=== PATIENT | female | born 2000 | race Caucasian/White ===

== ENCOUNTER 2025-05-04 10:03 | Outpatient (REF) | payer MEDICAID, OTHER, SELFPAY ==
--- OUTSIDE RECORDS SUMMARY | 2025-05-04 09:30 | XMS_ITS | Encounter Summary ---
Author Organization [employer] Address [address] [place] [address] 7 [place] [address] Care Team Providers Care Thermospray Operator Name Role Phone Miya Saldana JASON Primary Care Provider [phone] [phone] Reason for Visit * Reason Comments pap Encounter Details Date Type Department Care Team (Latest Contact Info) Description 05/04/2025 9:30 AM EDT Procedure Visit [facility] [address], [place] [phone] Qing Pittman CNM [address], [place] [phone] Checking subdermal contraceptive (Primary Dx); Encntr screen for infections w sexl mode of transmiss Social History Tobacco Use Types Packs/Day Years Used Date Smoking Tobacco: Never Tobacco Cessation:Counseling Given: Not Answered Alcohol Use Standard Drinks/Week Comments Never 0 (1 standard drink = 0.6 oz pur e alcohol) Depression Answer Date Recorded Patient Health Questionnaire-9 Score 9 03/23/2025 Patient Health Questionnaire-9 Score 9 03/23/2025 Last PHQ-9: Questionnaire Data Not on file 0 03/23/2025 Housing Stability Answer Date Recorded What is your housing situation today? I do not have housing (Staying with others, in a hotel, in a long-term, living outside on the street, on a beach, in a car, or in a park 03/25/[address] you li ve. Do you have problems with any of the following? None of the above 03/25/2025 Food Insecurity Answer Date Recorded Within the past 12 months, y ou worried that your food would run out before you got money to buy more: Sometimes True 2024 Within the past 12 months,th e food you bought just didn't last and you didn't have enough money to get more: Sometimes True 03/25/2025 Transportation Answer Date Recorded In the past 12 months, has l ack of transportation kept you from medical appts, meetings, work or from getting things needed for daily living? Yes, it has kept me from medical appointments or getting medications. 03/23/2025 Utilities Answer Date Recorded In the past 12 months, has t he electric, gas, oil or water company threatened to shut off services in your home? No 03/23/2025 Depression Answer Date Recorded Patient Health Questionnaire-2 Score 2 03/23/2025 Internet Access Answer Date Recorded Internet Access Q1 Yes 03/25/2025 Internet Access Q2 Not on file 03/25/2025 Comments No Sex and Gender Information Value Date Recorded Sex Assigned at Female 03/12/2025 1:23 PM EDT Legal Sex Female 10:34 AM EST Gender Identity Female 03/12/2025 1:23 PM EDT Sexual Orientation Straight 03/12/2025 1: 23 PM EDT documented as of this encounter Last Filed Vital Signs Vital Sign Reading Time Taken Comments Blood Pressure 100/68 05/04/2025 9:39 AM EDT Pulse 67 05/04/2025 9:39 AM EDT Temperature 37.1 C (98.7 F) 05/04/2025 9:39 AM EDT Respiratory Rate 14 05/04/2025 9:39 AM EDT Oxygen Saturation 99% 05/04/2025 9:39 AM EDT Inhaled Oxygen Concentration - - Weight 74.9 kg (165 lb 3.2 oz) 05/04/2025 9:39 A M EDT Height - - Body Mass Index 29.73 04/02/2025 1:54 PM EDT documented in this encounter Progress Notes * Qing Pittman CNM - 05/04/2025 9:30 AM EDT Subjective Patient ID: Geraldine Finney is a 25 y.o. female who presents for pap Nexplanon replaced at last visit with me. Here for pap, but would like to defer today due to menses. Happy with implant, no concerns with site. No change in partner. No vaginal/urinary symptoms. Review of Systems Objective BP 100/68 (BP Location: Left arm, Patient Position: Sitting, BP Cuff Size: Adult) Pulse 67 Temp98.7 ??F (37.1 ??C) (Oral) Resp 14 Wt 165 lb 3.2 oz (74.9 kg) LMP 05/03/2025 SpO2 99% BMI29.73 kg/m?? Physical Exam Constitutional: Appearance: Normal appearance. Skin: Comments: Nexplanon palpable in left arm, site well healed Neurological: Mental Status: She is alert. Psychiatric: Mood and Affect: Mood normal. Behavior: Behavior normal. Assessment/Plan Diagnoses and all orders for this visit: Checking subdermal contraceptive Reviewed normal side effects and danger signs. Expect irregular bleeding, or less likely, no bleeding at all. Report if implant not palpable. Report prolonged, frequent or heavy bleeding. Remove/replace Nexplanon by 5y from insertion date. May remove any time prior to that if desired. Will schedule pap at desk. Let me know if bleeding persists for longer than a week. Encntr screen for infections w sexl mode of transmiss - Syphilis Screen; Future Will add on syphilis testing to PCP labs. She will go get these now. documented in this encounter Plan of Treatment Not on file documented as of this encounter Procedures Procedure Name Priority Date/Time Associated Diagnosis Comments SYPHILIS SCREEN Routine 05/04/2025 10:12 AM EDT Encntr screen for infections w sexl mode of transmiss documented in this encounter Results * Syphilis Screen (05/04/2025 10:12 AM EDT) Syphilis Screen Nonreactive Nonreactive [facility] Blood Venous blood specimen / Unknown 05/04/2025 10:12 AM EDT 05/04/2025 11:02 AM EDT us Qing Pittman CNM LAB BLOOD ORDERABLES Nanette l Result [facility] [address] [place] [phone] documented in this encounter Visit Diagnoses Diagnosis Checking subdermal contraceptive- Primary Surveillance of previously prescribed implantable subdermal contraceptive Encntr screen for infections w sexl mode of transmiss documented in this encounter Additional Health Concerns Assessment Noted Time PHQ-9 Depression Total Score: 9 03/23/20 25 10:27 AM EDT documented as of this encounter Care Teams Thermospray Operator Relationship Specialty Start Date End Date Miya Saldana CNP [address] [place] [address] PCP - General Family Medicine 04/02/25 documented as of this encounter
[2025-05-04 11:09] LABS: MANUAL DIFF FLAG NO
[2025-05-04 11:16] LABS: Hematocrit 36.4 % (37.0-47.0); Hemoglobin 12.1 g/dl (12.0-16.0); Imm Gran Abs Auto 0.01 X10*3/uL (0.00-0.03); Imm Gran Pct Auto 0.2 % (0.0-0.4); Lymphocytes Absolute Auto 1.8 X10*3/uL (1.2-4.9); Mean Corpuscular HGB Conc 33.2 g/dl (31.0-35.0); Mean Corpuscular Hemoglobin 28.2 pg (27.0-33.0); Mean Corpuscular Volume 84.8 fL (80.0-98.0); NRBC Abs Auto 0.000 X10*3/uL (0.0-0.012); NRBC Pct Auto 0.0 /100WBC (0.0-0.2); Platelet Count 197 X10*3/uL (160-400); Red Blood Count 4.29 X10*6/uL (4.20-5.50); White Blood Count 5.2 X10*3/uL (4.8-10.8)
[2025-05-04 11:30] LABS: Anion Gap 9 (12-20); Blood Urea Nitrogen 13 mg/dL (9-16); Calcium 9.1 mg/dL (8.4-10.2); Carbon Dioxide 26 mmol/L (22-29); Chloride 109 mmol/L (96-108); Cholesterol 133 mg/dL (<200); Estimated Glomerular Filt Rate > 60; HDL Cholesterol 41 mg/dL (>40); Potassium 4.1 mmol/L (3.3-5.1); Sodium 140 mmol/L (135-145); Triglycerides 65 mg/dL (<150)
[2025-05-04 11:52] LABS: HBS Num1 185.44 mIU/mL (0-7.99); HBc Num1 0.15 S/CO (0.00-0.79); HBsAGNum1 0.47 S/CO (0.00-0.99); HIV Num 1 0.04 S/CO (0.00-0.99); Hepatitis B Surface Antigen Negative (Negative); Syphilis Screen Nonreactive (Nonreactive); ~HepC Num1 0.21 S/CO (0.00-0.79); ~Hepatitis B Surface Antibody REACTIVE (Nonreactive); ~Hepatitis C Antibody Nonreactive (Nonreactive)
--- OUTSIDE RECORDS SUMMARY | 2025-05-04 12:08 | XMS_ITS | Clinical Summary ---
Author Organization [employer] Address [address] [place] [address] 7 [place] [address] Care Team Providers Care Innovations Paraprofessional Name Role Phone Miya Saldana CNP Primary Care Provider [phone] [phone] Allergies No known active allergies Medications No known medications Active Problems No known active problems Encounters Date Type Department Care Team Description 05/04/2025 9:30 AM EDT Procedure Visit [facility] MEDICINE [address] [place] [phone] Qing Pittman CNM Checking subdermal contraceptive (Primary Dx); Encntr screen for infections w sexl mode of transmiss 05/04/2025 Results Follow-Up [facility] [address] [place] [phone] Qing Pittman CNM CBC auto differential, Lipid Panel, Standard, Basic Metabolic Panel 05/04/2025 Travel 04/02/2025 2:00 PM EDT Office Visit [facility] [address] [place] [address] Miya Saldana CNP Encounter for physical examination (Primary Dx) 04/02/2025 Travel 04/01/2025 Telephone [facility] [address] [place] [address] Jose Maria Garibaldi, [place] chart prep 03/25/2025 Patient Outreach [facility] [address] [place] [phone] Messi Tejada MD Pre-visit Planning (SDOH screening positive and Tobacco screening negative) 03/23/2025 9:30 AM EDT Procedure Visit [facility] [address] [place] [address] Qing Pittman CNM Nexplanon insertion (Primary Dx); Nexplanon removal 03/23/2025 Patient Outreach [facility] [address] [place] [address] Qing Pittman CNM Care Coordination (CHW outreach for [facility] housing search-referral completed ) 03/23/2025 Travel 03/22/2025 Telephone [facility] [address] [place] [address] Vandana Quick MA chart prep 03/12/2025 2:00 PM EDT Office Visit [facility] [address] [place] [address] Anisha Rizvi ANP Left arm pain (Primary Dx); Presence of subdermal contraceptive device 03/12/2025 Travel 03/11/2025 Telephone [facility] [address] [place] [address] Messi Tejada MD Appointment Request from Last 3 Months Immunizations Immunization Administration Dates Next Due Tdap 03/12/2025 Social History Tobacco Use Types Packs/Day Years [...] with others, in a hotel, in a residential, living outside on the street, on a [...] Q2 Not on file 03/25/2025 Comments No Intention Date Recorded No desire to become (finding) 0 03/23/2025 Sex and Gender Information Value Date Recorded Sex Assigned at Female 03/12/2025 1:23 PM EDT Legal Sex Female 10:34 AM EST Gender Identity Female 03/12/2025 1:23 PM EDT Sexual Orientation Straight 03/12/2025 1: 23 PM EDT Last Filed Vital Signs Vital Sign Reading [...] oz) 05/04/2025 9:39 A M EDT Height 158.8 cm (5' 2.5 ) 04/02/2025 1:54 PM EDT Body Mass Index 29.73 04/02/2025 1:54 PM EDT Plan of Treatment Health Maintenance Due Date Last Done Comments HIV Screening 2001 HPV Vaccines (1 - 3-dose series) 2016 Hepatitis C Screening 2019 Hepatitis B Vaccines (1 of 3 - 19+ 3-dose series) 2020 Pap Smear 2022 Depression Monitoring 09/20/2025 03/23/2025 , 03/23/2025 Influenza Vaccine (#1) 2026 Postp oned from 03/08/2025 (Patient Refused) Alcohol/Substance Use Screening 03/23/2026 03/23/2025 Disability Screening 03/23/2026 03/23/2025 Family Planning (PISQ) 03/23/2026 03/23/2025 SDOH Screening 03/25/2026 03/25/2025 COVID-19 Vaccine (1 - 2023-2 5 season) 2026 Postponed from 03/08 (Patient Refused) Tobacco Screening 05/04/2026 05/04/2025 DTaP/Tdap/Td Vaccines (2 - T d or Tdap) 03/12/2035 03/12/2025 Zoster Vaccines (1 of 2) 2051 RSV Patients and Patients Aged 60 years or older (1 - 1-dose 75+ series) 2076 HIB Vaccines Aged Out No longer eligi ble based on patient's age to complete this topic Hepatitis A Vaccines Aged Out No long er eligible based on patient's age to complete this topic IPV Vaccines Aged Out No longer eligi ble based on patient's age to complete this topic Meningococcal B Vaccine Aged Out No l onger eligible based on patient's age to complete this topic Meningococcal Vaccine Aged Out No liv hi eligible based on patient's age to complete this topic Pneumococcal Vaccine: Pediatrics (0 to 5 Years) and At-Risk Patients (6 to 49) Years Aged Out No longer eligible b ased on patient's age to complete this topic RSV under 20 months Aged Out No longe r eligible based on patient's age to complete this topic Rotavirus Vaccines Aged Out No longer eligible based on patient's age to complete this topic Procedures Procedure Name Priority Date/Time Associated Diagnosis Comments SYPHILIS SCREEN Routine 05/04/2025 10:12 AM EDT Encntr screen for infections w sexl mode of transmiss BASIC METABOLIC PANEL Routine 05/04/2025 10:12 AM EDT Encounter for physical examination LIPID PANEL, STANDARD Routine 05/04/2025 10:12 AM EDT Encounter for physical examination CBC WITH AUTO DIFFERENTIAL Routine 05/04/2025 10:12 AM EDT Encounter for physical examination POCT , URINE Routine 03/23/2025 10:30 AM EDT Nexplanon insertion MS RMVL W/RINSJ NON-BIODEGRADABLE DRUG DLVR IMPLT Routine 03/23/2025 9:45 AM EDT Nexplanon insertion Nexplanon removal from Last 3 Months Results * Syphilis Screen (05/04/2025 10:12 AM EDT) Pathologist [facility] Syphilis Screen Nonreactive Nonreactive [facility] Blood Venous blood specimen / Unknown 05/04/2025 10:12 AM EDT 05/04/2025 11:02 AM EDT us Qing CRUZ LAB BLOOD ORDERABLES Nanette cotto Result [facility] [address] [place] [phone] [phone] * (ABNORMAL) CBC auto differential (05/04/2025 10:12 AM EDT) Pathologist [facility] White Blood Count 5.2 4.8 - 10.8 X10*3/uL [facility] Red Blood Count 4.29 4.20 - 5.50 X10*6/uL [facility] Hemoglobin 12.1 12.0 - 16.0 g/dl [facility] Hematocrit 36.4(L) 37.0 - 47.0 % [facility] Mean Corpuscular Volume 84.8 80.0 - 98.0 fL [facility] Mean Corpuscular Hemoglobin 28.2 27.0 - 33.0 pg [facility] Mean Corpuscular HGB Conc 33.2 31.0 - 35.0 g/dl [facility] Red Cell Distribution Width 12.7 11.0 - 16.0 % [facility] Platelet Count 197 160 - 400 X10*3/uL [facility] Mean Platelet Volume 11.2 9.4 - 12.3 fL [facility] Neutrophils Percent Auto 52.4 45 - 73 % [facility] Imm Gran Pct Auto 0.2 0.0 - 0.4 % [facility] Lymphocytes Percent Auto 33.9 20 - 40 % [facility] Monocytes Percent Auto 10.0 2 - 11 % [facility] Eosinophils Percent Auto 2.9 0 - 4 % [facility] Basophils Percent Auto 0.6 0 - 2 % [facility] NRBC Pct Auto 0.0 0.0 - 0.2 /100WBC [facility] Neutrophils Absolute Auto 2.7 2.0 - 8.3 x10*3/uL [facility] Imm Gran Abs Auto 0.01 0.00 - 0.03 X10*3/uL [facility] Lymphocytes Absolute Auto 1.8 1.2 - 4.9 X10*3/uL [facility] Monocytes Absolute Auto 0.5 0.1 - 1.2 X10*3/uL [facility] Eosinophils Absolute Auto 0.2 0.0 - 0.4 X10*3/uL [facility] Basophils Absolute Auto 0.0 0.0 - 0.2 X10*3/uL [facility] NRBC Abs Auto 0.000 0.0 - 0.012 X10*3/uL [facility] Blood Venous blood specimen / Unknown 05/04/2025 10:12 AM EDT 05/04/2025 11:02 AM EDT Miya [facility] LAB BLOOD ORDERABLES Nanette l Result [facility] [address] [place] [phone] * Lipid Panel, Standard (05/04/2025 10:12 AM EDT) Triglycerides 65 <150 mg/dL [facility] Comment:Desirable Triglyceri de: less than 150 mg/dLBorderline High Triglyceride 150-199 mg/dLHigh Triglyceride: 200-499 mg/dLVery High Triglyceride: greater than or equal to 5OO mg/dL Cholesterol 133 <200 mg/dL [facility] Comment:Desirable Cholestero l: less than 200 mg/dLBorderline High Cholesterol: 200-239 mg/dLHigh Cholesterol: greater than 239 mg/dL LDL Cholesterol Calculated 79 <100 mg/dL [facility] Comment:Desirable LDL: less than 100 mg/dLNear Optimal/Above Optimal LDL: 110- 129 mg/dLBorderline High LDL: 130-159 mg/dLHigh LDL: 160-189 mg/dLVery High LDL: greater than or equal to 190 mg/dL HDL Cholesterol 41 >40 mg/dL [facility] Comment:Desirable HDL: great er than 40 mg/dL Note: This HDL assay may give artificially low results in patients with liver disease. Blood Venous blood specimen / Unknown 05/04/2025 10:12 AM EDT 05/04/2025 11:02 AM EDT [facility] LAB BLOOD ORDERABLES Nanette l Result [facility] [address] [place], [place] [phone] * (ABNORMAL) Basic Metabolic Panel (05/04/2025 10:12 AM EDT) Sodium 140 135 - 145 mmol/L [facility] Potassium 4.1 3.3 - 5.1 mmol/L [facility] Chloride 109(H) 96 - 108 mmol/L [facility] Carbon Dioxide 26 22 - 29 mmol/L [facility] Anion Gap 9(L) 12 - 20 [facility] Urea Nitrogen (BUN) 13 9 - 16 mg/dL [facility] Creatinine, Serum 0.63 0.5 - 1.4 mg/dL [facility] Estimated Glomerular Filt Rate >60 [facility] Comment:Chronic Kidney Disea se: Estimated GFR < 60 mL/min/1.35c1Clokxd Kidney Disease: Estimated GFR < 15 mL/min/1.73m2 Glucose 94 60 - 115 mg/dL [facility] Calcium 9.1 8.4 - 10.2 mg/dL [facility] Blood Venous blood specimen / Unknown 05/04/2025 10:12 AM EDT 05/04/2025 11:02 AM EDT Miya Saldana [facility] LAB BLOOD ORDERABLES Nanette l Result [facility] [address] [place] [phone] * POCT , urine manually resulted (03/23/2025 10:30 AM EDT) Preg Test, Ur Negative Negative, Indeterminate, None Detected, Invalid, Specimen unsatisfactory for evaluation, Weakly Positive, 2+ QC Media Lot # [id number] Lot# Expiration Date [id number] Urine 03/23/2025 10:3 0 AM EDT Qing Pittman CNM POINT OF CARE TEST ENTER/ EDIT ORDERABLES Final Result * MS RMVL W/RINSJ NON-BIODEGRADABLE DRUG DLVR IMPLT (03/23/2025 9:45 AM EDT) Narrative Qing Pittman CNM - 03/23/2025 9:45 AM EDT Qing Pittman CNM 03/23/2025 10:44 AM Insertion/Removal of Contraceptive Capsule Date/Time: 03/23/2025 9:45 AM Performed by: Qing Pittman CNM Authorized by: Qing Pittman CNM Confirmed correct patient, procedure, site, and patient consented: Yes Participating Staff: Qing Pittman CNM Consent: Consent obtained: Verbal and written Consent given by: Patient Procedural risks and benefits discussed: Yes Patient questions answered: yes Patient agrees, verbalizes understanding, and wants to proceed: yes Educational handouts given: yes Instructions and paperwork completed: yes [place] Protocol: Patient states understanding of procedure being performed: yes Site marked: yes Indication: Indication: presence of non-biodegradable drug delivery implant Pre-procedure: Pre-procedure timeout performed: yes Prepped with: povidone-iodine Local anesthetic: 2ml 2% lidocaine. The site was cleaned and prepped in a sterile fashion: yes Procedure: Procedure: Removal with reinsertion Small stab incision was made in arm: yes Left/right: Left Preloaded contraceptive capsule trocar was placed subdermally: yes Visualization of implant was obtained: yes Contraceptive capsule was inserted and trocar removed: yes Visualization of notch in stylet and palpation of device: yes Palpation confirms placement by provider and patient: yes Site was closed with steri-strips and pressure bandage applied: yes OSM: 1 each etonogestrel-eluting 68 mg Comments: Old implant removed intact after dissection of adhesions. New implant placed without incident. Qing Pittman CNM IN CLINIC/BEDSIDE ORDERAB LES Final Result from Last 3 Months Insurance [facility] Care Teams Innovations Paraprofessional Relationship Specialty Start Date End Date Miya Saldana CNP [address] [place] [phone] PCP - General Family Medicine 04/02/25
--- OUTSIDE RECORDS SUMMARY | 2025-05-04 12:08 | XMS_ITS | Encounter Summary ---
Author Organization [employer] Address [address] [facility] 7 [place] [address] Care Team Providers Care Skid Worker Name Role Phone Miya Saldana CNP Primary Care Provider [phone] [phone] Encounter Details Date Type Department Care Team (Latest Contact Info) Description 05/04/2025 Travel Social History Tobacco Use Types Packs/Day Years Used Date Smoking Tobacco: Never Alcohol Use Standard Drinks/Week Comments Never 0 [...] with others, in a hotel, in a custodial, living outside on the street, on a [...] PM EDT documented as of this encounter Plan of Treatment Not on file documented as of this encounter Visit Diagnoses Not on filedocumented in this encounter Additional Health Concerns Assessment Noted Time PHQ-9 Depression Total Score: 9 03/23/20 25 10:27 AM EDT documented as of this encounter Care Teams Skid Worker Relationship Specialty Start Date End Date Miya Saldana CNP [address] [place] [address] PCP - General Family Medicine 04/02/25 documented as of this encounter
--- OUTSIDE RECORDS SUMMARY | 2025-05-04 12:08 | XMS_ITS | Encounter Summary ---
Author Organization [employer] Address [address] [facility] [address] [place] [address] Care Team Providers Care Miniature Train Driver Name Role Phone Miya Saldana JASON Primary Care Provider [phone] [phone] Encounter Details Date Type Department Care Team (Late st Contact Info) Description 05/04/2025 Results Follow-Up [facility] [address] [place], [place] [phone] Qing Pittman CNM [address] [place] [address] CBC auto differential, Lipid Panel, Standard, Basic Metabolic Panel Social History Tobacco Use Types Packs/Day Years [...] with others, in a hotel, in a senior living, living outside on the street, on a [...] PM EDT documented as of this encounter Miscellaneous Notes * Result Encounter Note - Qing Pittman CNM - 05/04/2025 11:35 AM EDT FYI! documented in this encounter Plan of Treatment Not on file documented as of this encounter Visit Diagnoses Not on filedocumented in this encounter Additional Health Concerns Assessment Noted Time PHQ-9 Depression Total Score: 9 03/23/20 10:27 AM EDT documented as of this encounter Care Teams Miniature Train Driver Relationship Specialty Start Date End Date Miya Saldana CNP [address] [place] [address] PCP - General Family Medicine 04/02/25 documented as of this encounter
== END 2025-05-04 10:04 | disposition home or self-care (01) ==
LOC: HO.HHCL 10:03
PROVIDERS: Visit Provider Advanced Practice Midwife
DX: Z00.00 Encounter for general adult medical examination without abnormal findings (principal); Z11.59 Encounter for screening for other viral diseases; Z11.4 Encounter for screening for human immunodeficiency virus [HIV]
CPT/HCPCS: 36415; 80048; 80061; 85025; 86704; 86706; 86780; 86803; 87340; 87389

== ENCOUNTER 2025-05-26 16:20 | Outpatient (REF) | payer MEDICAID, OTHER, SELFPAY ==
--- OUTSIDE RECORDS SUMMARY | 2025-05-26 15:45 | XMS_ITS | Encounter Summary ---
Author Organization [employer] Address [address] [facility] 7t [place] [address] Care Team Providers Care Interior Design Teacher Name Role Phone SaldanaMiya JASON Primary Care Provider [phone] Reason for Visit * Reason Comments pap Encounter Details Date Type Department Care Team (Latest Contact Info) Description 05/26/2025 3:45 PM EST Procedure Visit [facility] MED[facility] [address] [place], [place] [phone] Qing Pittman CNM [address] [place], [place] [phone] Cervical cancer screening (Primary Dx); Encntr screen for infections w sexl mode of transmiss; Vaginal discharge Social History Tobacco Use Types Packs/Day Years [...] with others, in a hotel, in a long term, living outside on the street, on a [...] Date Recorded No desire to become (finding) 1 07/26/2024 Sex and Gender Information Value Date Recorded Sex Assigned at Female 03/12/2025 1:23 PM EDT Legal Sex Female 10:34 AM EST Gender Identity Female 03/12/2025 1:23 PM EDT Sexual Orientation Straight 03/12/2025 1: 23 PM EDT documented as of this encounter Last Filed Vital Signs Vital Sign Reading Time Taken Comments Blood Pressure 110/60 05/26/2025 4:08 PM EST Pulse 79 05/26/2025 4:08 PM EST Temperature 37.1 C (98.7 F) 05/26/2025 4:08 PM EST Respiratory Rate 14 05/26/2025 4:08 PM EST Oxygen Saturation 98% 05/26/2025 4:08 PM EST Inhaled Oxygen Concentration - - Weight 77.6 kg (171 lb) 05/26/2025 4:08 PM EST Height - - Body Mass Index 30.78 04/02/2025 1:54 PM EDT documented in this encounter Progress Notes * Qing Pittman CNM - 05/26/2025 3:45 PM EST Subjective Patient ID: Geraldine Finney is a 25 y.o. female who presents for pap Hep B immune, HIV/Hep C/syphilis negative 04/2025. Here for pap. Notes some discharge and vaginal irritation x 4 months. No new partners, no new products. Agrees to pap based STI testing today. Nexplanon inserted 03/2025. Happy with method. Review of Systems Genitourinary: Positive for vaginal discharge. Negative for dyspareunia, dysuria, menstrual problem, pelvic pain, vaginal bleeding and vaginal pain. Objective BP 110/60 (BP Location: Left arm, Patient Position: Sitting, BP Cuff Size: Adult) Pulse 79 Temp98.7 ??F (37.1 ??C) (Oral) Resp 14 Wt 171 lb (77.6 kg) LMP 05/18/2025 SpO2 98% BMI 30.78 kg/m?? Physical Exam Photograph Enlarger present: declines quality assurance lab technician. Constitutional: Appearance: Normal appearance. Genitourinary: General: Normal vulva. Labia: Right: No rash, tenderness, lesion or injury. Left: No rash, tenderness, lesion or injury. Vagina: Normal. No signs of injury and foreign body. No vaginal discharge, erythema, tenderness, bleeding or lesions. Cervix: No cervical motion tenderness, discharge, friability, lesion, erythema, cervical bleeding or eversion. Uterus: Normal. Not enlarged and not tender. Adnexa: Right adnexa normal and left adnexa normal. Right: No mass, tenderness or fullness. Left: No mass, tenderness or fullness. Neurological: Mental Status: She is alert. Psychiatric: Mood and Affect: Mood normal. Behavior: Behavior normal. Assessment/Plan Diagnoses and all orders for this visit: Cervical cancer screening - Pap Smear Pap today. Repeat 3 years if normal. Will contact with results. Encntr screen for infections w sexl mode of transmiss - STI testing add on (NG, CT, Trich) Pap based STI testing today. Vaginal discharge Normal wet mount today. Will treat yeast/bacterial vaginosis on pap if noted. documented in this encounter Plan of Treatment Upcoming Encounters Date Type Department Care Team (Late st Contact Info) Description 06/23/2025 10:15 AM EST Procedure Visit [facility] MEDICINE [address] [place] [address] Qing Pittman CNM [address] [place] [address] Scheduled Orders Name Type Priority Associated Diagnoses Orde r Schedule Pap Smear Pathology and Cytology Routine Cervical cancer screening Ordered: 05/26/2025 STI testing add on (NG, CT, Trich) Pathology and Cytology Routine Encntr screen for infections w sexl mode of transmiss Ordered: 05/26/2025 documented as of this encounter Procedures Procedure Name Priority Date/Time Associated Diagnosis Comments POCT WET MOUNT/ROSANNE Routine 05/26/2025 4: 24 PM EST Vaginal discharge documented in this encounter Results * POCT fern test, vaginal fluid manually resulted (05/26/2025 4:24 PM EST) ROSANNE Prep Negative Comment:pH 4.5, neg whiff, n eg clue, neg trich, neg yeast, neg wbc Vaginal Fluid Vaginal structure / Unknown 05/26/2025 4:24 PM EST Qing CRUZ POINT OF CARE TEST ENTER/ EDIT ORDERABLES Final Result documented in this encounter Visit Diagnoses Diagnosis Cervical cancer screening- Primary Screening for malignant neoplasm of the cervix Encntr screen for infections w sexl mode of transmiss Vaginal discharge Leukorrhea, not specified as infective documented in this encounter Additional Health Concerns Assessment Noted Time PHQ-9 Depression Total Score: 9 03/23/20 25 10:27 AM EDT documented as of this encounter Care Teams Interior Design Teacher Relationship Specialty Start Date End Date Miya Saldana CNP [address] [place] [phone] PCP - General Family Medicine 04/02/25 documented as of this encounter
--- OUTSIDE RECORDS SUMMARY | 2025-05-31 14:18 | XMS_ITS | Encounter Summary ---
Author Organization [employer] Address [address] [facility] 7[address] [place] [address] Care Team Providers Care Consumer Sales Representative Name Role Phone Miya Saldana JASON Primary Care Provider [phone] Encounter Details Date Type Department Care Team (Latest Contact Info) Description 05/26/2025 Travel Social History Tobacco Use Types Packs/Day [...] with others, in a hotel, in [place] [facility], living outside on the street, on a [...] as of this encounter Plan of Treatment Upcoming Encounters Date Type Department Care Team (Late st Contact Info) Description 06/23/2025 10:15 AM EST Procedure Visit [facility] MEDICINE [address] [place], [place] [phone] Qing Pittman CNM [address] [place] [address] documented as of this encounter Visit Diagnoses Not on filedocumented in this encounter Additional Health Concerns Assessment Noted Time PHQ-9 Depression Total Score: 9 03/23/20 10:27 AM EDT documented as of this encounter Care Teams Consumer Sales Representative Relationship Specialty Start Date End Date Miya Saldana CNP [address] [place] [address] PCP - General Family Medicine 04/02/25 documented as of this encounter
--- OUTSIDE RECORDS SUMMARY | 2025-05-31 14:18 | XMS_ITS | Clinical Summary ---
Author Organization [employer] [facility] Address [address] [place] [address] 7 [place] [address] Care Team Providers Care Doping Supervisor Name Role Phone Miya Saldana CNP Primary Care Provider [phone] Allergies No known active allergies Medications No known medications Active Problems No known active problems Encounters Date Type Department Care Team Description 05/26/2025 3:45 PM EST Procedure Visit [address] [phone] Qing Pittman CNM Cervical cancer screening (Primary Dx); Encntr screen for infections w sexl mode of transmiss; Vaginal discharge 05/26/2025 Travel 05/25/[address] [address] Qing Pittman CNM chart prep 05/04/2025 9:30 AM EDT Procedure Visit [address] [address] Qing Pittman CNM Checking subdermal contraceptive (Primary Dx); Encntr screen for infections w sexl mode of transmiss 05/04/2025 Results Follow-Up [address] [address] Qing Pittman CNM CBC auto differential, Lipid Panel, Standard, Basic Metabolic Panel, Additional followed-up results: 5 05/04/2025 Travel 04/02/2025 2:00 PM EDT Office Visit [facility] [address] [place] [address] Miya Saldana CNP Encounter for physical examination (Primary Dx) 04/02/2025 Travel 04/01/2025 Telephone [facility] [address] [place] [address] Monserrat Moise MA chart prep 03/25/2025 Patient Outreach [facility] MEDICINE [address] [place] [phone] Messi Tejada MD Pre-visit Planning (SDOH screening positive and Tobacco screening negative) 03/23/2025 9:30 AM EDT Procedure Visit [facility] MED[facility]INE [address] [place] [phone] Qing Pittman CNM Nexplanon insertion (Primary Dx); Nexplanon removal 03/23/2025 Patient Outreach [address] [address] Qing Pittman CNM Care Coordination (CHW outreach for SDOH housing search-referral completed ) 03/23/2025 Travel 03/22/[address] [address] Vandana Quick MA chart prep 03/12/2025 2:00 PM EDT Office Visit [facility] [address] [place] [phone] Anisha Rizvi ANP Left arm pain (Primary Dx); Presence of subdermal contraceptive device 03/12/2025 Travel 03/11/[address] [address] Messi Tejada MD Appointment Request from Last [...] with others, in a hotel, in a longterm, living outside on the street, on a [...] (171 lb) 05/26/2025 4:08 PM EST Height 158.8 cm (5' 2.5 ) 04/02/2025 1:54 PM ED T Body Mass Index 30.78 04/02/2025 1:54 PM EDT Plan of Treatment Upcoming Encounters Date Type Department Care Team (Late st Contact Info) Description 06/23/2025 10:15 AM EST Procedure Visit [facility] MED[facility]INE [address] [place], [place] [phone] Qing Pittman, CNM [address] [place], [place] [phone] Health Maintenance Due Date Last Done Comments HPV Vaccines (1 - 3-dose series) 2016 Hepatitis B Vaccines (1 of 3 - 19+ 3-dose series) 2020 Pap Smear 2022 Depression Monitoring 09/20/2025 03/23/2025 , 03/23/2025 Influenza Vaccine (#1) 2026 Postp oned from 03/08/2025 (Patient Refused) Alcohol/Substance Use Screening 03/23/2026 03/23/2025 Disability Screening 03/23/2026 03/23/2025 SDOH Screening 03/25/2026 03/25/2025 COVID-19 Vaccine (1 - 2024-2 6 season) 2026 Postponed from 03/08 (Patient Refused) Family Planning (PISQ) 05/26/2026 05/26/2025 Tobacco Screening 05/26/2026 05/26/2025 DTaP/Tdap/Td Vaccines (2 - T d or Tdap) 03/12/2035 03/12/2025 Zoster Vaccines (1 of 2) 2051 RSV Patients and Patients Aged 60 years or older (1 - 1-dose 75+ series) 2076 HIV Screening Completed 05/04/2025 Hepatitis C Screening Completed 05/04/2025 HIB Vaccines Aged Out No longer eligi [...] Diagnosis Comments POCT WET MOUNT/ROSANNE Routine 05/26/2025 4 :24 PM EST Vaginal discharge SYPHILIS SCREEN Routine 05/04/2025 10:12 AM EDT Encntr screen for infections w sexl mode of transmiss BASIC METABOLIC PANEL Routine 05/04/2025 10:12 AM EDT Encounter for physical examination LIPID PANEL, STANDARD Routine 05/04/2025 10:12 AM EDT Encounter for physical examination CBC WITH AUTO DIFFERENTIAL Routine 05/04/2025 10:12 AM EDT Encounter for physical examination HEPATITIS B SURFACE ANTIGEN, EIA Routine 05/04/2025 10:12 AM EDT Encounter for physical examination HEPATITIS B CORE AB TOTAL Routine 05/04/2025 10:12 AM EDT Encounter for physical examination HEPATITIS B SURFACE ANTIBODY, QUALITATIVE Routine 05/04/2025 10:12 AM EDT Encounter for physical examination HEPATITIS C AB W/REFL TO HCV RNA, QN, PCR Routine 05/04/2025 10:12 AM EDT Encounter for physical examination HIV 1/2 ANTIGEN/ANTIBODY, FOURTH GENERATION W/RFL Routine 05/04/2025 10:12 AM EDT Encounter for physical examination POCT , URINE Routine 03/23/2025 10:30 AM EDT Nexplanon insertion MS RMVL W/RINSJ NON-BIODEGRADABLE DRUG DLVR IMPLT Routine 03/23/2025 9:45 AM EDT Nexplanon insertion Nexplanon removal from Last 3 Months Results * POCT fern test, vaginal fluid manually resulted (05/26/2025 4:24 PM EST) Pathologist [facility] ROSANNE Prep Negative Comment:pH 4.5, neg whiff, n eg clue, neg trich, neg yeast, neg wbc Vaginal Fluid Vaginal structure / Unknown 05/26/2025 4:24 PM EST Qing CRUZ POINT OF CARE TEST ENTER/ EDIT ORDERABLES Final Result * Syphilis Screen (05/04/2025 10:12 AM EDT) Pathologist [facility] Syphilis Screen Nonreactive Nonreactive [facility] Blood Venous blood specimen / Unknown 05/04/2025 10:12 AM EDT 05/04/2025 11:02 AM EDT Qing Pittman [facility] BLOOD ORDERABLES Nanette l Result [facility] [address] [place] [phone] * (ABNORMAL) CBC auto differential (05/04/2025 10:12 AM EDT) [facility] White Blood Count 5.2 4.8 - 10.8 X10*3/uL [facility] Red Blood Count 4.29 4.20 - 5.50 X10*6/uL [facility] Hemoglobin 12.1 12.0 - 16.0 g/dl [facility] Hematocrit 36.4(L) 37.0 - 47.0 % [facility] Mean Corpuscular Volume 84.8 80.0 - 98.0 fL [facility] Mean Corpuscular Hemoglobin 28.2 27.0 - 33.0 pg [facility] Mean Corpuscular HGB Conc 33.2 31.0 - 35.0 g/dl [facility] Red Cell Distribution Width 12.7 11.0 - 16.0 % [facility] Platelet Count 197 160 - 400 X10*3/uL [facility] Mean Platelet Volume 11.2 9.4 - 12.3 fL [facility] Neutrophils Percent Auto 52.4 45 - 73 % [facility] Imm Gran Pct Auto 0.2 0.0 - 0.4 % [facility] Lymphocytes Percent Auto 33.9 20 - 40 % [facility] Monocytes Percent Auto 10.0 2 - 11 % [facility] Eosinophils Percent Auto 2.9 0 - 4 % [facility] Basophils Percent Auto 0.6 0 - 2 % [facility] NRBC Pct Auto 0.0 0.0 - 0.2 /100WBC [facility] Neutrophils Absolute Auto 2.7 2.0 - 8.3 x10*3/uL [facility] Imm Gran Abs Auto 0.01 0.00 - 0.03 X10*3/uL [facility] Lymphocytes Absolute Auto 1.8 1.2 - 4.9 X10*3/uL [facility] Monocytes Absolute Auto 0.5 0.1 - 1.2 X10*3/uL [facility] Eosinophils Absolute Auto 0.2 0.0 - 0.4 X10*3/uL [facility] Basophils Absolute Auto 0.0 0.0 - 0.2 X10*3/uL [facility] NRBC Abs Auto 0.000 0.0 - 0.012 X10*3/uL [facility] Blood Venous blood specimen / Unknown 05/04/2025 10:12 AM EDT 05/04/2025 11:02 AM EDT [facility] LAB BLOOD ORDERABLES Nanette l Result [facility] [address] [place] [phone] [phone] * Hepatitis C Antibody with Reflex to HCV, RNA, Quantitative, Real-Time PCR (05/04/2025 10:12 AM EDT) Hepatitis C Antibody Nonreactive Nonreactive [facility] Comment:Antibodies to HCV no t detected; does not exclude early acuteHCV infection. Blood Venous blood specimen / Unknown 05/04/2025 10:12 AM EDT 05/04/2025 11:02 AM EDT [facility] LAB BLOOD ORDERABLES Nanette l Result Performing Organization Address City/[facility]/ZIP Co de Phone Number [facility] [address] [place] [phone] * Hepatitis B surface antigen, EIA (05/04/2025 10:12 AM EDT) Hepatitis B Surface Ag Negative Negative [facility] Blood Venous blood specimen / Unknown 05/04/2025 10:12 AM EDT 05/04/2025 11:02 AM EDT [facility] LAB BLOOD ORDERABLES Nanette l Result Performing Organization Address [facility] Co de Phone Number [facility] [address] [place] [phone] * Hepatitis B Core Antibody, Total (05/04/2025 10:12 AM EDT) Hepatitis B Core Antibody Nonreactive Nonreactive [facility] Blood Venous blood specimen / Unknown 05/04/2025 10:12 AM EDT 05/04/2025 11:02 AM EDT [facility] LAB BLOOD ORDERABLES Nanette l Result Performing Organization Address [facility] Co de Phone Number [facility] [address] [place] [phone] * HIV-1/2 Antigen and Antibodies, Fourth Generation, with Reflexes (05/04/2025 10:12 AM EDT) HIV AB/AG Nonreactive Nonreactive [facility] Comment:HIV-1 p24 Ag and/or HIV-1/HIV-2 Ab not detected.A test result that is nonreactive does not exclude thepossibility of exposure to or infection with HIV-1 and/orHIV-2. Nonreactive results in this assay for individualswith prior exposure to HIV-1 and/or HIV-2 may be due toantigen and antibody levels that are below the limit ofdetection of this assay.The [employer] HIV Ag/Ab Combo assay result andsupplemental assay results should be interpreted inconjunction with the patient's clinical presentation,history and other laboratory results. If the results areinconsistent with clinical evidence, additional testing issuggested to confirm the result. Blood Venous blood specimen / Unknown 05/04/2025 10:12 AM EDT 05/04/2025 11:02 AM EDT [facility] BLOOD ORDERABLES Nanette l Result Performing Organization Address [facility] Co de Phone Number [facility] [address] [place] [phone] * Hepatitis B Surface Antibody, Qualitative (05/04/2025 10:12 AM EDT) Pathologist [facility] ~Hepatitis B Surface Antibody REACTIVE Nonreactive [facility] Comment:REACTIVE: > 11.99 mI U/mL Blood Venous blood specimen / Unknown 05/04/2025 10:12 AM EDT 05/04/2025 11:02 AM EDT [facility] LAB BLOOD ORDERABLES Nanette l Result Performing Organization Address [facility]/ZIP Co de Phone Number [facility] [address] [place] [phone] * Lipid Panel, Standard (05/04/2025 10:12 AM EDT) Triglycerides 65 <150 mg/dL [facility] Comment:Desirable Triglyceri de: less than 150 mg/dLBorderline High Triglyceride 150-199 mg/dLHigh Triglyceride: 200-499 mg/dLVery High Triglyceride: greater than or equal to 5OO mg/dL Cholesterol 133 <200 mg/dL [facility] Comment:Desirable Cholestero l: less than 200 mg/dLBorderline High Cholesterol: 200-239 mg/dLHigh Cholesterol: greater than 239 mg/dL LDL Cholesterol Calculated 79 <100 mg/dL [facility] Comment:Desirable LDL: less than 100 mg/dLNear Optimal/Above Optimal LDL: 110- 129 mg/dLBorderline High LDL: 130-159 mg/dLHigh LDL: 160-189 mg/dLVery High LDL: greater than or equal to 190 mg/dL HDL Cholesterol 41 >40 mg/dL [facility] Comment:Desirable HDL: great er than 40 mg/dL Note: This HDL assay may give artificially low results in patients with liver disease. Blood Venous blood specimen / Unknown 05/04/2025 10:12 AM EDT 05/04/2025 11:02 AM EDT [facility] BLOOD ORDERABLES Nanette l Result [facility] [address] [place] [phone] * (ABNORMAL) Basic Metabolic Panel (05/04/2025 10:12 AM EDT) Sodium 140 135 - 145 mmol/L [facility] Potassium 4.1 3.3 - 5.1 mmol/L [facility] Chloride 109(H) 96 - 108 mmol/L [facility] Carbon Dioxide 26 22 - 29 mmol/L [facility] Anion Gap 9(L) 12 - 20 [facility] Urea Nitrogen (BUN) 13 9 - 16 mg/dL [facility] Creatinine, Serum 0.63 0.5 - 1.4 mg/dL [facility] Estimated Glomerular Filt Rate >60 [facility] Comment:Chronic Kidney Disea se: Estimated GFR < 60 mL/min/1.11d2Hlvywi Kidney Disease: Estimated GFR < 15 mL/min/1.73m2 Glucose 94 60 - 115 mg/dL [facility] Calcium 9.1 8.4 - 10.2 mg/dL [facility] Blood Venous blood specimen / Unknown 05/04/2025 10:12 AM EDT 05/04/2025 11:02 AM EDT Result [facility] Miya Saldana [facility] BLOOD ORDERABLES Nanette l Result [facility] [address] [place] [phone] * POCT , urine manually resulted (03/23/2025 10:30 AM EDT) Preg Test, Ur Negative Negative, Indeterminate, None Detected, Invalid, Specimen unsatisfactory for evaluation, Weakly Positive, 2+ QC Media Lot # [id number] Lot# Expiration Date [id number] Urine 03/23/2025 10:3 0 AM EDT Qing Pittman CNM POINT OF CARE TEST ENTER/ EDIT ORDERABLES Final Result * MS RMVL W/RINSJ NON-BIODEGRADABLE DRUG DLVR IMPLT (03/23/2025 9:45 AM EDT) Qing Sharp CNM - 03/23/2025 9:45 AM EDT Qing Pittamn CNM 03/23/2025 10:44 AM Insertion/Removal of Contraceptive [...] given: yes Instructions and paperwork completed: yes Wayan Protocol: Patient states understanding of procedure being [...] Final Result from Last 3 Months [facility] Care Teams Doping Supervisor Relationship Specialty Start Date End Date Miya Saldana CNP [address] [place] [address] PCP - General Family Medicine 04/02/25
== END 2025-05-26 16:21 | disposition home or self-care (01) ==
LOC: HO.LNP 16:20
PROVIDERS: Visit Provider Advanced Practice Midwife
DX: Z12.4 Encounter for screening for malignant neoplasm of cervix (principal); Z20.2 Contact with and (suspected) exposure to infections with a predominantly sexual mode of transmission
CPT/HCPCS: 87626; 88175

== ENCOUNTER 2025-06-23 14:27 | Outpatient (REF) | payer MEDICAID, OTHER, SELFPAY ==
--- OUTSIDE RECORDS SUMMARY | 2025-06-23 10:15 | XMS_ITS | Encounter Summary ---
Author Organization [facility] [facility] Address [address] [place] [address] Care Team Providers Care Glue Jointer Feeder Name Role Phone SaldanaMiya JASON Primary Care Provider [phone] Reason for Visit * Reason Comments pap Encounter Details Date Type Department Care Team (Latest Contact Info) Description 06/23/2025 10:15 AM EST Procedure Visit [facility] [address], [place] [phone] Qing Pittman CNM [address], [place] [phone] Encntr screen for infections w sexl mode of transmiss (Primary Dx); Vaginal discharge Social History Tobacco Use Types [...] with others, in a hotel, in a fci, living outside on the street, on a [...] Recorded No desire to become (finding) 1 08/24/2024 Sex and Gender Information Value Date Recorded Sex Assigned at Female 03/12/2025 1:23 PM EDT Legal Sex Female 10:34 AM EST Gender Identity Female 03/12/2025 1:23 PM EDT Sexual Orientation Straight 03/12/2025 1: 23 PM EDT documented as of this encounter Last Filed Vital Signs Vital Sign Reading Time Taken Comments Blood Pressure 122/70 06/23/2025 10:18 AM EST Pulse 75 06/23/2025 10:18 AM EST Temperature 37.1 C (98.7 F) 06/23/2025 10:18 AM EST Respiratory Rate 16 06/23/2025 10:18 AM EST Oxygen Saturation 98% 06/23/2025 10:18 AM EST Inhaled Oxygen Concentration - - Weight 76.4 kg (168 lb 6.4 oz) 06/23/2025 10:18 AM EST Height - - Body Mass Index 30.31 04/02/2025 1:54 PM EDT documented in this encounter Progress Notes * Qing Pittman CNM - 06/23/2025 10:15 AM EST Subjective Patient ID: Geraldine Finney is a 25 y.o. female who presents for followup LSIL, HPV neg pap 05/2025. STI testing not run with pap, needs to be collected (already ordered). Nexplanon inserted 03/2025. Notes some discharge which she was having at last visit as well, no other vaginal/urinary symptoms. Prefers provider collected samples. Review of Systems Genitourinary: Positive for vaginal discharge. Negative for dyspareunia, dysuria, menstrual problem, pelvic pain, vaginal bleeding and vaginal pain. Objective BP 122/70 (BP Location: Left arm, Patient Position: Sitting, BP Cuff Size: Adult) Pulse 75 Temp98.7 ??F (37.1 ??C) (Oral) Resp 16 Wt 168 lb 6.4 oz (76.4 kg) LMP 05/18/2025 SpO2 98% BMI30.31 kg/m?? Physical Exam Constitutional: Appearance: Normal appearance. Genitourinary: General: Normal vulva. Labia: Right: No rash, tenderness, lesion or injury. Left: No rash, tenderness, lesion or injury. Comments: Blind swab collection Neurological: Mental Status: She is alert. Psychiatric: Mood and Affect: Mood normal. Behavior: Behavior normal. Assessment/Plan Diagnoses and all orders for this visit: Encntr screen for infections w sexl mode of transmiss Gonorrhea/Chlamydia/trichomonas sent. Will contact with results. Vaginal discharge Bacterial vaginosis swab sent. Will contact with results. Happy with implant. May remove any time up to 5 y from insertion date. documented in this encounter Plan of Treatment Not on file documented as of this encounter Visit Diagnoses Diagnosis Encntr screen for infections w sexl mode of transmiss- Primary Vaginal discharge Leukorrhea, not specified as infective documented in this encounter Additional Health Concerns Assessment Noted Time PHQ-9 Depression Total Score: 9 03/23/20 25 10:27 AM EDT documented as of this encounter Care Teams Glue Jointer Feeder Relationship Specialty Start Date End Date Miya Saldana CNP [address] [place] [id number] PCP - General Family Medicine 04/02/25 documented as of this encounter
[2025-06-23 15:48] LABS: Bacterial Vaginosis PCR NEGATIVE (Negative); Candida Group PCR NOT DETECTED (Not Detect); Candida glab krusei PCR NOT DETECTED (Not Detect); Trichomonas vaginalis PCR NOT DETECTED (Not Detect)
[2025-06-23 16:17] LABS: CT PCR NOT DETECTED (Not Detect.); NG PCR NOT DETECTED (Not Detect.)
--- OUTSIDE RECORDS SUMMARY | 2025-06-23 19:21 | XMS_ITS | Encounter Summary ---
Author Organization [employer] Address [address] [facility] [address] [place] [address] Care Team Providers Care Bi Solutions Architect Name Role Phone Miya Saldana JASON Primary Care Provider [phone] Encounter Details Date Type Department Care Team (Late st Contact Info) Description 06/15/2025 Orders Only [facility] [address], [place] [phone] Qing Pittman CNM [address], [place] [phone] Screening examination for venereal disease (Primary Dx) Social History Tobacco Use Types Packs/Day Years [...] others, in a hotel, in a senior care, living outside on the street, on a [...] as of this encounter Plan of Treatment Scheduled Orders Name Type Priority Associated Diagnoses Orde r Schedule Bacterial Vaginosis, Yeast and Trich Microbiology Routine Screening examination for venereal disease Expected: 06/15/2025 (Approximate), Expires: 06/15/2026 Chlamydia/N. Gonorrhoeae RNA, TMA, Vagina Microbiology Routine Screening examination for venereal disease Expected: 06/15/2025 (Approximate), Expires: 06/15/2026 documented as of this encounter Visit Diagnoses Diagnosis Screening examination for venereal disease- Primary documented in this encounter Additional Health Concerns Assessment Noted Time PHQ-9 Depression Total Score: 9 03/23/20 25 10:27 AM EDT documented as of this encounter Care Teams Bi Solutions Architect Relationship Specialty Start Date End Date Miya Saldana CNP [address] [place] [phone] PCP - General Family Medicine 04/02/25 documented as of this encounter
--- OUTSIDE RECORDS SUMMARY | 2025-06-23 19:21 | XMS_ITS | Encounter Summary ---
Author Organization [employer] Address [address] [facility] [address] [place] [address] Care Team Providers Care Damage Assessor Name Role Phone Miya Saldana JASON Primary Care Provider [phone] Encounter Details Date Type Department Care Team (Latest Contact Info) Description 06/23/2025 Travel Social History Tobacco Use Types Packs/Day [...] documented as of this encounter Care Teams Damage Assessor Relationship Specialty Start Date End Date Miya Saldana CNP [address] [place] [address] PCP - General Family Medicine 04/02/25 documented as of this encounter
--- OUTSIDE RECORDS SUMMARY | 2025-06-23 19:21 | XMS_ITS | Encounter Summary ---
Author Organization [employer] Address [address] [facility] [address] [place] [address] Care Team Providers Care Cloth Spreader Name Role Phone Miya Saldana JASON Primary Care Provider [phone] Encounter Details Date Type Department Care Team (Late st Contact Info) Description 06/23/2025 Orders Only [facility] [address], [place] [phone] Qing Pittman CNM [address], [place] [phone] Social History Tobacco Use Types Packs/Day Years [...] Procedure Name Priority Date/Time Associated Diagnosis Comments BACTERIAL VAGINOSIS PANEL Routine 06/23/2025 10:34 AM EST CHLAMYDIA/N. GONORRHOEAE RNA, TMA, UROGENITAL Routine 06/23/2025 10:34 AM EST documented in this encounter Results * Chlamydia/N. Gonorrhoeae RNA, TMA, Urogenitial (06/23/2025 10:34 AM EST) CT PCR NOT DETECTED Not Detect. [facility] Comment:A not detected test result does not exclude the possibilityof infection because test results can be affected byimproper specimen collection, concurrent antibiotic therapy,or the number of organisms in the specimen which may bebelow the sensitivity of the test. As with many diagnostictests, results from the Xpert CT/NG assay should beinterpreted in conjunction with other laboratory andclinical data available to the clinician.Xpert CT/NG performance has not been evaluated in patientsless than 14 years of age. The assay should not be used forthe evaluationof suspected sexual abuse or for other medico-legalindications. Additional testing is recommended in anycircumstance when false positive or false negative resultscould lead to adverse medical, social or psychologicalconsequences. NG PCR NOT DETECTED Not Detect. [facility] Comment:A not detected test result does not exclude the possibilityof infection because test results can be affected byimproper specimen collection, concurrent antibiotic therapy,or the number of organisms in the specimen which may bebelow the sensitivity of the test. As with many diagnostictests, results from the Xpert CT/NG assay should beinterpreted in conjunction with other laboratory andclinical data available to the clinician.Xpert CT/NG performance has not been evaluated in patientsless than 14 years of age. The assay should not be used forthe evaluationof suspected sexual abuse or for other medico-legalindications. Additional testing is recommended in anycircumstance when false positive or false negative resultscould lead to adverse medical, social or psychologicalconsequences. 06/23/2025 10:3 4 AM EST 06/23/2025 2:29 PM EST Qing [facility] MICROBIOLOGY - GENERA L ORDERABLES Final Result [facility] [address] [place] [phone] * Bacterial Vaginosis (06/23/2025 10:34 AM EST) TRICHOMONAS VAGINALIS DETECTION BY PCR NOT DETECTED Not Detect [facility] BACTERIAL VAGINOSIS DETECTION BY PCR NEGATIVE Negative [facility] Comment:The BV organism targ ets of the Xpert Xpress MVP test can becommensal in women; Xpert Xpress MVP positive results forbacterial vaginosis should be considered in conjunction withother clinical and patient information to determine thedisease status. Organisms that are not detected by the XpertXpress MVP test have also been reported to be associatedwith BV and aerobic vaginitis.The Xpert Xpress MVP test performance has not been evaluatedin patients under the age of 14. YAKELIN GROUP DETECTION BY PCR NOT DETECTED Not Detect [facility] Yakelin glab krusei PCR NOT DETECTED Not Detect [facility] 06/23/2025 10:3 4 AM EST 06/23/2025 2:29 PM EST us Qing Pittman CNM LAB MICROBIOLOGY - GENERA L ORDERABLES Final Result [facility] [address] [place] [phone] documented in this encounter Visit Diagnoses Not on filedocumented in this encounter Additional Health Concerns Assessment Noted Time PHQ-9 Depression Total Score: 9 03/23/20 25 10:27 AM EDT documented as of this encounter Care Teams Cloth Spreader Relationship Specialty Start Date End Date Miya Saldana CNP [address] [place] [id number] PCP - General Family Medicine 04/02/25 documented as of this encounter
--- OUTSIDE RECORDS SUMMARY | 2025-06-23 19:21 | XMS_ITS | Clinical Summary ---
Author Organization [employer] [facility] Address [address] [place] [address] 7[address] [place] [address] Care Team Providers Care Child Care Center Administrator Name Role Phone Miya Saldana JASON Primary Care Provider [phone] Allergies No known active allergies Medications No known medications Active Problems No known active problems Encounters Date Type Department Care Team Description 06/23/2025 10:15 AM EST Procedure Visit [facility] [address] [place] [address] Gretchen Carbajal CNM Encntr screen for infections w sexl mode of transmiss (Primary Dx); Vaginal discharge 06/23/2025 Results Follow-Up [address] [address] Gretchen Carbajal CNM Bacterial Vaginosis, Chlamydia/N. Gonorrhoeae RNA, TMA, Urogenitial 06/23/2025 Orders Only [address] [address] Gretchen Carbajal CNM 06/23/2025 Travel 06/22/2025 Telephone [facility] [address] [place] [address] Akiko Reagan [place] 06/15/2025 Orders Only [address] [address] Gretchen Carbjaal CNM Screening examination for venereal disease (Primary Dx) 06/14/2025 Results Follow-Up [address] [address] Gretchen Carbajal CNM HPV DNA, Low/High Risk 06/09/2025 Results Follow-Up [address] [address] Gretchen Carbajal CNM Pap Smear 05/26/2025 3:45 PM EST Procedure Visit [address] [address] Gretchen Carbajal CNM Cervical cancer screening (Primary Dx); Encntr screen for infections w sexl mode of transmiss; Vaginal discharge 05/26/2025 Orders Only [address] [address] Gretchen Carbajal CNM 05/26/2025 Travel 05/25/[address] [address] Gretchen Carbajal CNM chart prep 05/04/2025 9:30 AM EDT Procedure Visit [address] [address] Gretchen Carbajal CNM Checking subdermal contraceptive (Primary Dx); Encntr screen for infections w sexl mode of transmiss 05/04/2025 Results Follow-Up [address] [address] Gretchen Carbajal CNM CBC auto differential, Lipid Panel, Standard, Basic Metabolic Panel, Additional followed-up results: 5 05/04/2025 Travel 04/02/2025 2:00 PM EDT Office Visit [facility] [address] [place] [address] Miya Saldana CNP Encounter for physical examination (Primary Dx) 04/02/2025 Travel 04/01/2025 Telephone [facility] [address] [place] [address] Monserrat Moise MA chart prep 03/25/2025 Patient Outreach [address] [address] Messi Tejada MD Pre-visit Planning (SDOH screening positive and Tobacco screening negative) from Last 3 Months Immunizations Immunization Administration [...] with others, in a hotel, in a mcc, living outside on the street, on a [...] 6.4 oz) 06/23/2025 10:18 AM EST Height 158.8 cm (5' 2.5 ) 04/02/2025 1:54 PM EDT Body Mass Index 30.31 04/02/2025 1:54 PM EDT Plan of Treatment Health Maintenance Due Date Last Done Comments HPV Vaccines (1 - 3-dose series) 2016 Hepatitis B Vaccines (1 of 3 - 19+ 3-dose series) 2020 Depression Monitoring 09/20/2025 03/23/2025 , 03/23/2025 Influenza Vaccine (#1) 2026 Postp oned from 03/08/2025 (Patient Refused) Alcohol/Substance Use Screening 03/23/2026 03/23/2025 Disability Screening 03/23/2026 03/23/2025 SDOH Screening 03/25/2026 03/25/2025 COVID-19 Vaccine (1 - 2024-2 6 season) 2026 Postponed from 03/08 (Patient Refused) Pap Smear 05/26/2026 05/26/2025 Family Planning (PISQ) 06/23/2026 06/23/2025 Tobacco Screening 06/23/2026 06/23/2025 DTaP/Tdap/Td Vaccines (2 - T d or [...] Procedure Name Priority Date/Time Associated Diagnosis Comments CHLAMYDIA/N. GONORRHOEAE RNA, TMA, UROGENITAL Routine 06/23/2025 10:34 AM EST BACTERIAL VAGINOSIS PANEL Routine 06/23/2025 10:34 AM EST POCT WET MOUNT/ROSANNE Routine 05/26/2025 4: 24 PM EST Vaginal discharge PAP SMEAR Routine 05/26/2025 4:20 PM EST Cervical cancer screening HPV DNA, LOW/HIGH RISK Routine 05/26/2025 4:20 PM EST SYPHILIS SCREEN Routine 05/04/2025 10:12 AM EDT [...] 10:12 AM EDT Encounter for physical examination from Last 3 Months Results * Bacterial Vaginosis (06/23/2025 10:34 AM EST) TRICHOMONAS VAGINALIS DETECTION BY PCR NOT DETECTED Not Detect [facility] BACTERIAL VAGINOSIS DETECTION BY PCR NEGATIVE Negative [facility] Comment:The BV organism targ ets of [...] DETECTION BY PCR NOT DETECTED Not Detect [facility] Yakelin glab krusei PCR NOT DETECTED Not Detect [facility] 06/23/2025 10:3 4 AM EST 06/23/2025 2:29 PM EST us Gretchen CRUZ LAB MICROBIOLOGY - GENERA L ORDERABLES Final Result [facility] [address] [place] [phone] * Chlamydia/N. Gonorrhoeae RNA, TMA, Urogenitial (06/23/2025 10:34 AM EST) CT PCR NOT DETECTED Not Detect. [facility] Comment:A not detected test result does [...] psychologicalconsequences. NG PCR NOT DETECTED Not Detect. [facility] Comment:A not detected test result does [...] 4 AM EST 06/23/2025 2:29 PM EST Gretchen CRUZ LAB MICROBIOLOGY - GENERA L ORDERABLES Final Result [facility] [address] [place] [phone] * POCT fern test, vaginal fluid manually resulted (05/26/2025 4:24 PM EST) ROSANNE Prep Negative Comment:pH 4.5, neg whiff, n eg clue, neg trich, neg yeast, neg wbc Vaginal Fluid Vaginal structure / Unknown 05/26/2025 4:24 PM EST Gretchen Carbajal [employer] POINT OF CARE TEST ENTER/ EDIT ORDERABLES Final Result * HPV DNA, Low/High Risk (05/26/2025 4:20 PM EST) HPV High Risk Negative Negative [facility] HPV Genotype 16 Negative Negative [facility] HPV Genotype 18 Negative Negative [facility] Comment:HPV testing performe d at [facility] (CLIA#[id number]), [address] [place] [phone].Testing for HPV was performed using the Di CHUCKY 6800system. The presence of HPV in the female genital tract isassociated with a number of diseases, including cervicalcarcinoma. The HPV DNA high risk pool tests for HPV 31, 33,35, 39, 45, 51, 52, 56, 58, 59, 66 and 68. The testing forHPV 16 and 18 genotypes has also been performed. A positiveresult indicates detection of nucleic acid sequences fromone or more subtypes, whereas a negative result indicatessuch sequences were not detected. 05/26/2025 4:20 PM EST 05/28/2025 7:56 AM EST us Gretchen Carbajal [employer] LAB BLOOD ORDERABLES Nanette l Result [facility] [address] [place] [phone] * Pap Smear (05/26/2025 4:20 PM EST) Swab Cervix uteri structure / Unknown 05/26/2025 4:20 PM EST 05/27/2025 4:20 PM EST Narrative [facility] - 06/11/2025 8:00 AM EST ----- ------- Name: Geraldine Finney Age/Sex: 25/F : 2000 Unit#: [id number] Attend Dr: GRETCHEN CARBAJAL CNM Re05/26/25 Status: DEP REF Location: [facility] Disch: ----- ------- SPEC : [id number] RECD: 05/27/25 STATUS: FINN NEWMANKassie NUM: [id number] SVETLANA: 05/26/[address] [facility] [address]: GRETCHEN CARBAJAL CNM ENTERED: 05/28/25 SP TYPE: Pap Smr OT DR: ORDERED: Pap Smear, PAP path review Addendum Addendum 1 Entered: 06/11/25 HPV High Risk: Negative HPV Genotyping 16: Negative HPV Genotyping 18: Negative Addendum Signed (signature on file) DEEPAK Holm (ASCP) 06/11/25 0800 ----- ------- Interpretation ABNORMAL PAP TEST. Satisfactory for evaluation, with mildly dysplastic squamous cells / HPV cytopathic change (CARITO 1; low grade squamous intraepithelial lesion). Endocervical cells present. Clinical Information LMP: Previous PAP test: Other surgery: Implantable control Other history: Material Received ThinPrep-Cervical ----- ------- Signed (signature on file) Thuan Salazar MD 06/08/25 1710 (signature on file) DEEPAK Holm ([facility]) 06/11/25 0800 ----- ------- [facility] OF REPORT [facility] CYTOLOGY ORDERABLES F inal Result Performing Organization Address [facility] Co de Phone Number [facility] [address] [place] [address] [phone] * Syphilis Screen (05/04/2025 10:12 AM EDT) [facility] Syphilis Screen Nonreactive Nonreactive [facility] Blood Venous blood specimen / Unknown 05/04/2025 10:12 AM EDT 05/04/2025 11:02 AM EDT [facility] LAB BLOOD ORDERABLES Nanette l Result Performing Organization Address [facility] Co de Phone Number [facility] [address] [place] [phone] * (ABNORMAL) CBC auto differential (05/04/2025 10:12 AM EDT) [facility] White Blood Count 5.2 4.8 - 10.8 X10*3/uL [facility] Red Blood Count 4.29 4.20 - 5.50 X10*6/uL [facility] Hemoglobin 12.1 12.0 - 16.0 g/dl [facility] Hematocrit 36.4(L) 37.0 - 47.0 % [facility] Mean Corpuscular Volume 84.8 80.0 - 98.0 fL [facility] Mean Corpuscular Hemoglobin 28.2 27.0 - 33.0 pg [facility] Mean Corpuscular HGB Conc 33.2 31.0 - 35.0 g/dl [facility] Red Cell Distribution Width 12.7 11.0 - 16.0 % [facility] Platelet Count 197 160 - 400 X10*3/uL [facility] Mean Platelet Volume 11.2 9.4 - 12.3 fL [facility] Neutrophils Percent Auto 52.4 45 - 73 % [facility] Imm Gran Pct Auto 0.2 0.0 - 0.4 % [facility] Lymphocytes Percent Auto 33.9 20 - 40 % [facility] Monocytes Percent Auto 10.0 2 - 11 % [facility] Eosinophils Percent Auto 2.9 0 - 4 % [facility] Basophils Percent Auto 0.6 0 - 2 % [facility] NRBC Pct Auto 0.0 0.0 - 0.2 /100WBC [facility] Neutrophils Absolute Auto 2.7 2.0 - 8.3 x10*3/uL [facility] Imm Gran Abs Auto 0.01 0.00 - 0.03 X10*3/uL [facility] Lymphocytes Absolute Auto 1.8 1.2 - 4.9 X10*3/uL [facility] Monocytes Absolute Auto 0.5 0.1 - 1.2 X10*3/uL [facility] Eosinophils Absolute Auto 0.2 0.0 - 0.4 X10*3/uL [facility] Basophils Absolute Auto 0.0 0.0 - 0.2 X10*3/uL [facility] NRBC Abs Auto 0.000 0.0 - 0.012 X10*3/uL [facility] Blood Venous blood specimen / Unknown 05/04/2025 10:12 AM EDT 05/04/2025 11:02 AM EDT [facility] LAB BLOOD ORDERABLES Nanette l Result Performing Organization Address City/[facility] Co de Phone Number [facility] [address] [place] [phone] * Hepatitis C Antibody with Reflex to HCV, RNA, Quantitative, Real-Time PCR (05/04/2025 10:12 AM EDT) Pathologist [facility] Hepatitis C Antibody Nonreactive Nonreactive [facility] Comment:Antibodies to HCV no t detected; does not exclude early acuteHCV infection. Blood Venous blood specimen / Unknown 05/04/2025 10:12 AM EDT 05/04/2025 11:02 AM EDT [facility] LAB BLOOD ORDERABLES Nanette l Result Performing Organization Address [facility] de Phone Number [facility] [address] [place] [phone] * Hepatitis B surface antigen, EIA (05/04/2025 10:12 AM EDT) Pathologist [facility] Hepatitis B Surface Ag Negative Negative [facility] Blood Venous blood specimen / Unknown 05/04/2025 10:12 AM EDT 05/04/2025 11:02 AM EDT [facility] LAB BLOOD ORDERABLES Nanette l Result Performing Organization Address [facility] Co de Phone Number [facility] [address] [place] [phone] * Hepatitis B Core Antibody, Total (05/04/2025 10:12 AM EDT) Hepatitis B Core Antibody Nonreactive Nonreactive [facility] Blood Venous blood specimen / Unknown 05/04/2025 10:12 AM EDT 05/04/2025 11:02 AM EDT [facility] LAB BLOOD ORDERABLES Nanette l Result Performing Organization Address City/[facility]/ZIP Co de Phone Number [facility] [address] [place] [phone] * HIV-1/2 Antigen and Antibodies, Fourth Generation, with Reflexes (05/04/2025 10:12 AM EDT) [facility] HIV AB/AG Nonreactive Nonreactive [facility] Comment:HIV-1 p24 Ag and/or HIV-1/HIV-2 Ab not detected.A test result that is nonreactive does not exclude thepossibility of exposure to or infection with HIV-1 and/orHIV-2. Nonreactive results in this assay for individualswith prior exposure to HIV-1 and/or HIV-2 may be due toantigen and antibody levels that are below the limit ofdetection of this assay.The Mantex HIV Ag/Ab Combo assay result andsupplemental assay results should be interpreted inconjunction with the patient's clinical presentation,history and other laboratory results. If the results areinconsistent with clinical evidence, additional testing issuggested to confirm the result. Blood Venous blood specimen / Unknown 05/04/2025 10:12 AM EDT 05/04/2025 11:02 AM EDT [facility] LAB BLOOD ORDERABLES Nanette l Result Performing Organization Address City/[facility]/ZIP Co de Phone Number [facility] [address] [place] [phone] * Hepatitis B Surface Antibody, Qualitative (05/04/2025 10:12 AM EDT) [facility] ~Hepatitis B Surface Antibody REACTIVE Nonreactive [facility] Comment:REACTIVE: > 11.99 mI U/mL Blood Venous blood specimen / Unknown 05/04/2025 10:12 AM EDT 05/04/2025 11:02 AM EDT [facility] LAB BLOOD ORDERABLES Nanette l Result Performing Organization Address [facility] Co de Phone Number [facility] [address] [place] [phone] * Lipid Panel, Standard (05/04/2025 10:12 AM EDT) Triglycerides 65 <150 mg/dL [facility] Comment:Desirable Triglyceri de: less than 150 mg/dLBorderline High Triglyceride 150-199 mg/dLHigh Triglyceride: 200-499 mg/dLVery High Triglyceride: greater than or equal to 5OO mg/dL Cholesterol 133 <200 mg/dL [facility] Comment:Desirable Cholestero l: less than 200 mg/dLBorderline High Cholesterol: 200-239 mg/dLHigh Cholesterol: greater than 239 mg/dL LDL Cholesterol Calculated 79 <100 mg/dL [facility] Comment:Desirable LDL: less than 100 mg/dLNear Optimal/Above Optimal LDL: 110- 129 mg/dLBorderline High LDL: 130-159 mg/dLHigh LDL: 160-189 mg/dLVery High LDL: greater than or equal to 190 mg/dL HDL Cholesterol 41 >40 mg/dL [facility] Comment:Desirable HDL: great er than 40 mg/dL Note: This HDL assay may give artificially low results in patients with liver disease. Blood Venous blood specimen / Unknown 05/04/2025 10:12 AM EDT 05/04/2025 11:02 AM EDT [facility] BLOOD ORDERABLES Nanette l Result Performing Organization Address City/[facility]/ZIP Co de Phone Number [facility] [address] [place] [phone] * (ABNORMAL) Basic Metabolic Panel (05/04/2025 10:12 AM EDT) Sodium 140 135 - 145 mmol/L [facility] Potassium 4.1 3.3 - 5.1 mmol/L [facility] Chloride 109(H) 96 - 108 mmol/L [facility] Carbon Dioxide 26 22 - 29 mmol/L [facility] Anion Gap 9(L) 12 - 20 [facility] Urea Nitrogen (BUN) 13 9 - 16 mg/dL [facility] Creatinine, Serum 0.63 0.5 - 1.4 mg/dL [facility] Estimated Glomerular Filt Rate >60 [facility] Comment:Chronic Kidney Disea se: Estimated GFR < 60 mL/min/[id number] Kidney Disease: Estimated GFR < 15 mL/min/1.73m2 Glucose 94 60 - 115 mg/dL [facility] Calcium 9.1 8.4 - 10.2 mg/dL [facility] Blood Venous blood specimen / Unknown 05/04/2025 10:12 AM EDT 05/04/2025 11:02 AM EDT [facility] BLOOD ORDERABLES Nanette l Result Performing Organization Address City/State/[facility] Co de Phone Number [facility] [address] [place] [phone] from Last 3 Months Insurance [facility] HSN FULL Care Teams Child Care Center Administrator Relationship Specialty Start Date End Date Miya Saldana CNP [address] [place] [phone] PCP - General Family Medicine 04/02/25
--- OUTSIDE RECORDS SUMMARY | 2025-06-23 19:21 | XMS_ITS | Encounter Summary ---
Author Organization [employer] Address [address] [facility] 7t [place] [address] Care Team Providers Care Press Operator [employer] Name Role Phone Miya Saldana JASON Primary Care Provider [phone] Encounter Details Date Type Department Care Team (Late st Contact Info) Description 06/22/2025 Telephone [facility] [address] [place], [place] [phone] Akiko Reagan MA Social History Tobacco Use Types Packs/Day Years [...] as of this encounter Miscellaneous Notes * Telephone Encounter - Akiko Reagan MA - 06/22/2025 2:49 PM EST Chart Prep Labs: done Images: 03/12/25 Referrals: closed Vaccines due: Hep B and HPV Screenings: not applicable Overdue care gaps: Not applicable documented in this encounter Plan of Treatment Not on file documented as of this encounter Visit Diagnoses Not on filedocumented in this encounter Additional Health Concerns Assessment Noted Time PHQ-9 Depression Total Score: 9 03/23/20 10:27 AM EDT documented as of this encounter Care Teams Press Operator [employer] Relationship Specialty Start Date End Date Miya Saldana CNP [address] [facility] [place] [address] PCP - General Family Medicine 04/02/25 documented as of this encounter
--- OUTSIDE RECORDS SUMMARY | 2025-06-23 19:21 | XMS_ITS | Encounter Summary ---
Author Organization [employer] Address [address] [facility] [address]t [place] [address] Care Team Providers Care Asphalt Layer Name Role Phone Miya Saldana JASON Primary Care Provider [phone] Encounter Details Date Type Department Care Team ([facility] st Contact Info) Description 06/23/2025 Results Follow-Up [facility] [address] [place] [address] Qing Pittman CNM [address] [place] [address] Bacterial Vaginosis, Chlamydia/N. Gonorrhoeae RNA, TMA, Urogenitial Social History Tobacco Use Types Packs/Day Years [...] with others, in a hotel, in a [facility], living outside on the street, on a [...] Encounter Note - Qing Pittman CNM - 06/23/2025 4:24 PM EST Please let Geraldine know her vaginal infection tests were all negative. If she continue to have vaginal discharge that bothersome (itchy, abnormal color or odor), I can send some additional testing. Ifjust nonirritating discharge without odor, may be normal. Thanks! documented in this encounter Plan of Treatment Not on file documented as of this encounter Visit Diagnoses Not on filedocumented in this encounter Additional Health Concerns Assessment Noted Time PHQ-9 Depression Total Score: 9 03/23/20 10:27 AM EDT documented as of this encounter Care Teams Asphalt Layer Relationship Specialty Start Date End Date Miya Saldana CNP [address] [place] [phone] PCP - General Family Medicine 04/02/25 documented as of this encounter
== END 2025-06-23 14:28 | disposition home or self-care (01) ==
LOC: HO.LNP 14:27
PROVIDERS: Visit Provider Advanced Practice Midwife
DX: Z20.2 Contact with and (suspected) exposure to infections with a predominantly sexual mode of transmission (principal)
CPT/HCPCS: 81515; 87491; 87591